=== PATIENT | male | born 1995 | race Caucasian/White ===

== ENCOUNTER 2016-09-30 17:39 | Emergency (ER) | payer OTHER ==
[2016-09-30 17:43] VITALS: BP 112/59; PULSE 76; TEMP 97.9
[2016-09-30] MEDS ORDERED: SODIUM CHLORIDE 1,000 ML IV STA (19:43)
--- NOTE | 2016-09-30 19:48 | PDOC ---
History of Present Illness - General Chief Complaint: Psychiatric Stated Complaint: PAIN Time Seen by Provider: 09/30/16 19:21 History Source: Patient, Parent(s) Exam Limitations: No Limitations - History of Present Illness Initial Comments: 21 year old male with " three days of no sleep with episodes of laughing and crying," denies HI , SI, auditory/ visual hallucination. patient reports smoking weed everyday currently not working and dropped out of college. denies other substance abuse or alcohol abuse. no pmhx. denies headache, NVD, abdominal pain, chest pain. parent at bedside also reports that he not eating or drinking. Timing/Duration: getting worse Past History - Past Medical History Allergies/Adverse Reactions: Allergies No Known Allergies Allergy (Verified 10/01/16 19:47) Home Medications: Ambulatory Orders Melatonin 10 mg PO HS #7 tablet 09/30/16 Psychosocial History: Yes: no pertinent history Surgical History: Yes: No Surgical History - Social History Smoking Status: Never smoked *Review of Systems - Review of Systems Able to Perform ROS?: Yes Psychiatric: Yes: Frequent Crying, Sleep Pattern Change, Emotional Problems, Change in Appetite *Physical Exam - Vital Signs Last Vital Signs Temp Pulse Resp BP Pulse Ox 97.9 F 76 19 112/59 99 09/30/16 17:41 09/30/16 17:41 09/30/16 17:41 09/30/16 17:41 09/30/16 17:41 - Physical Exam General Appearance: Yes: Appropriately Dressed, Other (no consistent eye contact ) Respiratory/Chest: positive: Lungs Clear, Normal Breath Sounds Cardiovascular: positive: Regular Rhythm, Regular Rate, S1, S2 Gastrointestinal/Abdominal: positive: Normal Bowel Sounds, Soft. negative: Tender Musculoskeletal: positive: Normal Inspection Extremity: positive: Normal Capillary Refill, Normal Inspection, Normal Range of Motion Integumentary: positive: Dry, Warm, Pale Neurologic: positive: Fully Oriented, Alert, Normal Response, Motor Strength 5/5 , Other (flat affect with laughing episodes during exam) Plan - Order(s) Order(s): Orders Medication Instructions Recorded NK [No Known Home Medication] 09/30/16 09/30/16 19:51 10/01/16 20:53 - Laboratory CBC & Chemistry Diagram: 09/30/16 20:18 09/30/16 20:18 - Consult/PCP Case Discussed with Personal Care Physician Not on Staff:: Patient to follow up in [facility] clinic tomorrow am. CASE DISCUSSED WITH CHEMICAL SUPERVISOR ketty. patient is medically cleared. Calls made to arrange follow-up care: Sherly Lozano (follow up ) Consult Reason/Comments: Reviewed patient status. currently medically cleared. no threat to self. - Additional Consults Consult/PCP: Sherly Lozano LOBSTER MAN (psychiatry) Reason/Comments: r *DC/Admit/Observation/Transfer Diagnosis at time of Disposition: Sleep pattern disturbance - Discharge Dispostion Disposition: HOME - Prescriptions Prescriptions: Melatonin 10 mg PO HS #7 tablet - Referrals Referrals: Arian Thomas MD [Primary Care Provider] - - Patient Instructions Printed Discharge Instructions: Creating a Healthy Sleep Routine, Sleep Medications Additional Instructions: Please follow up in the [facility] clinic tomorrow at [address] am. [address] [place] [address] Ketty LOBSTER MAN. return to the ER If symptoms worsen. continue melatonin 10 mg once at night time
--- NOTE | 2016-09-30 20:26 | PDOC ---
*Physical Exam - Vital Signs Last Vital Signs Temp Pulse Resp BP Pulse Ox 97.9 F 76 19 112/59 99 09/30/16 17:41 09/30/16 17:41 09/30/16 17:41 09/30/16 17:41 09/30/16 17:41 Medical Decision Making - Medical Decision Making 09/30/16 20:26 agree with care from TIFFANIE England *DC/Admit/Observation/Transfer Diagnosis at time of Disposition: Sleep pattern disturbance - Referrals Referrals: Arian Thomas MD [Primary Care Provider] - - Patient Instructions - Post Discharge Activity
[2016-09-30 20:36] LABS: BASOPHIL 0.2 % (0-2.0); EOSINOPHIL 0.1 % (0-4.5); MCH 28.4 pg (25.7-33.7); MCHC 34.3 g/dl (32.0-35.9); MEAN CELL VOLUME 82.7 fl (80-96); MEAN PLT VOLUME 8.6 fl (7.5-11.1); NEUTROPHILS 77.8 % (42.8-82.8); PLATELET COUNT 278 K/MM3 (134-434); RDW 13.4 % (11.9-15.9); WHITE BLOOD COUNT 7.6 K/mm3 (4.0-10.0)
[2016-09-30 20:44] LABS: URINE APPEARANCE CLEAR; URINE BILIRUBIN NEGATIVE (NEGATIVE); URINE COLOR STRAW; URINE GLUCOSE (UA) NEGATIVE (NEGATIVE); URINE KETONE TRACE (NEGATIVE); URINE LEUK ESTERASE NEGATIVE (NEGATIVE); URINE NITRITE NEGATIVE (NEGATIVE); URINE PROTEIN NEGATIVE (NEGATIVE); URINE UROBILINOGEN NEGATIVE E.U./dl (0.2-1.0)
[2016-09-30 20:46] LABS: INR 1.2 (0.82-1.09); PROTHROMBIN TIME (PATIENT) 13.2 SEC (9.98-11.88)
[2016-09-30 20:47] LABS: URINE BLOOD 1+ (NEGATIVE)
[2016-09-30 20:48] LABS: URINE RBC 4 /hpf (0-3); URINE WBC <1 /hpf (3-5)
[2016-09-30 21:18] LABS: URINE MARIJUANA THC POSITIVE ng/ml (CUTOFF=50)
[2016-09-30 21:23] LABS: ALCOHOL < 5.0 mg/dl (0-5)
[2016-09-30 21:24] LABS: ALBUMIN 4.8 g/dl (3.4-5.0); ANION GAP 10 (8-16); BILIRUBIN,TOTAL 1.2 mg/dL (0.2-1.0); CALCIUM 9.6 mg/dL (8.5-10.1); CO2 29 mmol/L (21-32); COCKROFT - GAULT 104.07; GLUCOSE,RANDOM 98 mg/dL (74-106); SGOT/AST 12 U/L (15-37); SGPT/ALT 22 U/L (12-78); TOT PROT 7.8 g/dl (6.4-8.2)
[2016-09-30 21:25] LABS: ALK PHOS 54 U/L (45-117)
[2016-09-30 21:41] LABS: SALICYLATE < 4.0 mg/dl (0.0-30.0)
[2016-09-30] MEDS ORDERED: MELATONIN 5 MG TABLETS PO ONE (21:56)
== END 2016-09-30 23:25 | disposition home or self-care (01) ==
LOC: JER 17:39
PROC: 3E0337Z Introduction of Electrolytic and Water Balance Substance into Peripheral Vein, Percutaneous Approach (ICD-10-PCS; principal; 2016-09-30)
DX: G47.59 Other parasomnia (principal); F51.8 Other sleep disorders not due to a substance or known physiological condition
CPT/HCPCS: 36415; 80053; 80307; 81003; 81015; 82140; 84443; 85025; 85610; 99284-25

== ENCOUNTER 2016-10-01 19:34 | Emergency (ER) | payer OTHER ==
[2016-10-01 19:51] VITALS: BP 137/71; PULSE 65; TEMP 98.7
--- NOTE | 2016-10-01 21:10 | PDOC ---
History of Present Illness <SergeyTiffanyGriselda - Last Filed: 10/01/16 21:35> - General History Source: Patient, Parent(s) Exam Limitations: No Limitations - History of Present Illness Initial Comments: Patient is a well-appearing 21-year-old male who presents for the second time in the last 24 hours for anxiety, intermittent palpitations, lack of appetite and insomnia. Patient has been under increased stress due possibility of drug testing wall on probation. Patient reports that he frequently smokes marijuana and tested positive for THC during his previous visits to the ER. Patient had been seen in this ER previously and was medically cleared for psychiatric evaluation. Patient was scheduled to be seen by Dr. Hogue of psychiatry but failed to follow up. Patient denies suicidal homicidal ideations. REVIEW OF SYSTEMS CONSTITUTIONAL: No fever, no chills, no fatigue EYES: No visual changes ENT: No ear pain, no sore throat CARDIOVASCULAR: No chest pain, no palpitations RESPIRATORY: No cough, no SOB GI: No abdominal pain, no nausea, no vomiting, no constipation, no diarrhea GENITOURINARY: No dysuria, no frequency, no hematuria MUSKULOSKELETAL: No backpain, no joint pain, no myalgias SKIN: No rash NEURO: No headache PSYCH: Anxiety, insomnia, anorexia; EXAMINATION CONSTITUTIONAL: Well-appearing; well-nourished; in no apparent distress HEAD: Normocephalic; atraumatic EYES: PERRL; EOM intact ENMT: External appears normal; normal oropharynx NECK: Supple; non-tender; no cervical lymphadenopathy CARD: Normal S1, S2; no murmurs, rubs, or gallops RESP: Normal chest excursion with respiration; breath sounds clear and equal bilaterally; no wheezes, rhonchi, or rales ABD: Soft, non-distended; non-tender; no palpable organomegaly, no palpable hernias EXT: Normal ROM in all four extremities; non-tender to palpation; distal pulses intact SKIN: Warm, dry, no rash NEURO: No focal neurological deficiencies. PSYCH: Appearance: Appropriate; speech: Normal; affect: Appropriate; has no flight of ideas or tangential thinking; <Agustin Bunch - Last Filed: 10/01/16 21:59> - General Chief Complaint: Psychiatric Stated Complaint: PSYCHIATRIC Time Seen by Provider: 10/01/16 21:08 Past History <Griselda Rincon - Last Filed: 10/01/16 21:35> - Past Medical History Surgical History: Yes: No Surgical History - Social History Smoking Status: Current some day smoker <Agustin Bunch - Last Filed: 10/01/16 21:59> - Past Medical History Allergies/Adverse Reactions: Allergies No Known Allergies Allergy (Verified 10/01/16 19:47) Home Medications: Ambulatory Orders Melatonin 10 mg PO HS #7 tablet 09/30/16 *Physical Exam - Vital Signs Last Vital Signs Temp Pulse Resp BP Pulse Ox 98.7 F 65 14 137/71 100 10/01/16 19:48 10/01/16 19:48 10/01/16 19:48 10/01/16 19:48 10/01/16 19:48 <Griselda Rincon - Last Filed: 10/01/16 21:35> - Vital Signs Last Vital Signs Temp Pulse Resp BP Pulse Ox 98.7 F 65 14 137/71 100 10/01/16 19:48 10/01/16 19:48 10/01/16 19:48 10/01/16 19:48 10/01/16 19:48 <Agustin Bunch - Last Filed: 10/01/16 21:59> Plan - Progress Note Progress Note: 10/01/16 21:58 Patient is well-appearing 21-year-old male who presents with signs and symptoms of intermittent anxiety. In the ER, patient is awake and alert, well-appearing, with normal vital signs. At this time, I do not believe acute intervention is indicated. Patient advised to follow-up with psychiatry as scheduled previously. Patient also advised to discontinue abusing illegal drugs. Patient expressed understanding. <Agustin Bunch - Last Filed: 10/01/16 21:59> *DC/Admit/Observation/Transfer - Attestations Scribe Attestion: 10/01/16 21:35 Documentation prepared by Griselda Rincon, acting as medical file clerk for Agustin Bunch MD. <Griselda Rincon - Last Filed: 10/01/16 21:35> <Agustin Bunch - Last Filed: 10/01/16 21:59> Diagnosis at time of Disposition: Anxiety - Discharge Dispostion Disposition: HOME Condition at time of disposition: Stable - Referrals Referrals: Arian Thomas MD [Primary Care Provider] - Sherly Lozano NP [Nurse Practitioner] - - Patient Instructions Printed Discharge Instructions: DI for Anxiety -- Adult Additional Instructions: Stop smoking marijuana. Follow-up with Dr. Hogue of psychiatry as advised.
== END 2016-10-01 21:35 | disposition home or self-care (01) ==
LOC: JER 19:34
DX: F41.8 Other specified anxiety disorders (principal); Z73.3 Stress, not elsewhere classified
CPT/HCPCS: 99281-25

== ENCOUNTER 2018-11-16 22:57 | Emergency (ER) | payer OTHER | END 2018-11-17 01:00 | disposition home or self-care (01) | LOC: JER 11-17 01:00 ==

== ENCOUNTER 2018-11-20 04:24 | Emergency (ER) | payer OTHER ==
--- NOTE | 2018-11-20 04:34 | PDOC ---
Attending Attestation - Resident Resident Name: Yayo Hernandez - ED Attending Attestation I have performed the following: I have examined & evaluated the patient, The case was reviewed & discussed with the resident, I agree w/resident's findings & plan, Exceptions are as noted - HPI HPI: 11/20/18 05:50 Mr Woodall is a 23 yo M presenting with a headache pt was recently seen in the ER for cough, dx bronchitis d/c on Azithromycin Pt has not taken this medication He began having a headache this afternoon (+) fever (unable to tell me how high) (+) congestion (+) cough No head trauma No prior episodes like this - Physicial Exam PE: 11/20/18 05:54 GENERAL: The patient is in no acute distress, pt is frustrated and upset with physician examiners ENT: Ears normal, nares patent, oropharynx clear without exudates. Moist mucous membranes. Maxillary tenderness to palpation R>L NECK: Normal range of motion, supple, no nuchal rigidity LUNGS: rhoncherous Breath sounds HEART:Regular rate and rhythm, normal S1 and S2 without murmur, rub or gallop. ABDOMEN: Soft, nontender, normoactive bowel sounds. EXTREMITIES: Normal range of motion, no edema. NEUROLOGICAL: Cranial nerves II through XII grossly intact. Normal speech. No focal neurological deficits. SKIN: Warm, Dry, normal turgor, no rashes or lesions noted. 11/20/18 06:19 - Medical Decision Making 11/20/18 05:56 This patient walked out of the ER due to being up upset about something Pt mother and father got him to come back to the ER He was given po pain medications with little relief Will place I V Will do CXR (breath sounds rhoncerous) Will do CT head (pt with new headache that is intractable) Will re Assess 11/20/18 06:11 Laboratory Tests 11/20/18 05:39 WBC 8.6 Hgb 13.7 Hct 39.3 Plt Count 248 11/20/18 06:19 ? sinusitis CT head pending Will plan to discharge to home on Augmentin, Sudafed 11/20/18 06:53 CT- EXAM: CT HEAD WITHOUT CONTRAST No acute brain parenchymal abnormality. No hemorrhage, mass or acute territorial infarct. Chronic fracture left lamina papyracea. Mucoperiosteal thickening paranasal sinuses. Visualized mastoid air cells clear. One or more of the following dose reduction techniques were used: automated exposure control, adjustment of the mA and/or kV according to patient size, use of iterative reconstructive technique. Pt demonstrates maxillary tenderness and congestion Likely headache is secondary to sinusitis Will give Augmentin, Sudafed, Motrin/Tylenol, Mucinex Follow up with PMD
--- NOTE | 2018-11-20 04:42 | PDOC ---
History of Present Illness - General Stated Complaint: SEVERE HEADACHE Time Seen by Provider: 11/20/18 04:31 History Source: Patient - History of Present Illness Initial Comments: 11/20/18 04:48 23 yo M smoker with no pmhx presents with one day history of headache. He describes frontal headache that is throbbing in nature that started this afternoon and has not gone away. Denies any alleviating or aggravating factors. He denies photophobia or nausea. H was seen here 2 days prior and diagnosed with acute bronchitis and prescribed Zpack and albuterol inh. He failed to pick them up and now presents with headache. Endorsed some shortness of breath and continued productive cough. Denies CP, palpitations, abdominal pain, nausea or vomiting. Timing/Duration: reports: 4-6 hours Severity: Yes: moderate Past History - Travel Traveled outside of the country in the last 30 days: No Close contact w/someone who was outside of country & ill: No - Past Medical History Allergies/Adverse Reactions: Allergies Allergy/AdvReac Type Severity Reaction Status Date / Time No Known Allergies Allergy Verified 11/16/18 23:11 Home Medications: Ambulatory Orders Melatonin 10 mg PO HS #7 tablet 09/30/16 Albuterol Sulfate Inhaler - [Ventolin HFA Inhaler -] 2 inh PO Q4H PRN #1 inh Azithromycin [Zithromax 250mg Tablets -] 250 mg PO UTDICT #6 tab 11/17/18 Amoxicillin/Potassium Clav [Augmentin 875-125 Tablet] 1 each PO BID #14 tablet 11/20/18 Guaifenesin [Mucinex -] 600 mg PO BID #14 tablet.er 11/20/18 Pseudoephedrine HCl [Sudafed] 60 mg PO Q6H PRN #30 tablet 11/20/18 COPD: No - Suicide/Smoking/Psychosocial Hx Smoking History: Current every day smoker Have you smoked in the past 12 months: Yes Number of Cigarettes Smoked Daily: 10 Hx Alcohol Use: No Drug/Substance Use Hx: Yes (marjuana) Substance Use Type: Marijuana Lives with/in: parents Review of Systems - Review of Systems Able to Perform ROS?: Yes Is the patient limited Nepali proficient: No Constitutional: Yes: Loss of Appetite. No: Chills, Diaphoresis, Fever HEENTM: No: Recent change in vision Respiratory: Yes: Cough, Shortness of Breath Cardiac (ROS): No: Chest Pain, Edema, Chest Tightness All Other Systems: Reviewed and Negative *Physical Exam - Physical Exam General Appearance: Yes: Appropriately Dressed HEENT: positive: YODIT Neck: positive: Trachea midline, Supple Respiratory/Chest: positive: Rhonchi. negative: Chest Tender, Respiratory Distress, Accessory Muscle Use, Wheezing Cardiovascular: positive: S1, S2, Tachycardia. negative: Edema, JVD, Murmur Gastrointestinal/Abdominal: positive: Flat, Soft. negative: Tender Musculoskeletal: negative: CVA Tenderness Integumentary: positive: Normal Color, Dry, Warm Neurologic: positive: shop estimator II-XII NML intact, Fully Oriented, Alert ED Treatment Course - LABORATORY CBC & Chemistry Diagram: 11/20/18 05:39 11/20/18 05:39 Medical Decision Making - Medical Decision Making 11/20/18 04:55 23 yo M smoker with no pmhx presents with one day history of headache. Most likely secondary to acute URI and coughing. Will give duonebs, Ibuprofen and reglan. Ordered CXR to r/o PNA. 11/20/18 05:36 * Headache persists- will obtain head CT. * Will order basic labs CBC, CMP and given 1L NS. 11/20/18 06:52 * Labs all WNL * CT shows sinusitis and CXR show no acute pathology. * Will discharge home with Abx and sudafed. *DC/Admit/Observation/Transfer Diagnosis at time of Disposition: Acute frontal sinusitis Qualifiers: Recurrence: not specified as recurrent Qualified Code(s): J01.10 - Acute frontal sinusitis, unspecified - Discharge Dispostion Disposition: HOME Condition at time of disposition: Stable Decision to Admit order: No - Prescriptions Prescriptions: Amoxicillin/Potassium Clav [Augmentin 875-125 Tablet] 1 each PO BID #14 tablet Guaifenesin [Mucinex -] 600 mg PO BID #14 tablet.er Pseudoephedrine HCl [Sudafed] 60 mg PO Q6H PRN #30 tablet PRN Reason: congestion - Referrals - Patient Instructions Printed Discharge Instructions: DI for Sinusitis Additional Instructions: Medication has been sent to your pharmacy. increase activity as tolerated. Resume a regular diet. If symptoms worsen or your develop fever or chills return to ER immediately. - Post Discharge Activity
[2018-11-20] MEDS ORDERED: IBUPROFEN 600 MG TABLET (FP) PO ONE ×2 (04:46→05:02)
[2018-11-20] MEDS ORDERED: METOCLOPRAMIDE HCL 10 MG TABLET (FP) PO ONE ×2 (04:47→05:03)
[2018-11-20] MEDS ORDERED: ALBUTEROL SO4 2.5/IPRATROPIUM 0.5 INH SOL 3 ML VIAL.NEB. NEB ONE ×2 (04:48→05:02)
[2018-11-20 04:56] VITALS: BMI 21.4
[2018-11-20] MEDS ORDERED: SODIUM CHLORIDE 1,000 ML IV STA (05:31)
[2018-11-20 05:51] LABS: BASO % 0.4 % (0-2.0); EOS % 0.6 % (0-4.5); HEMATOCRIT 39.3 % (35.4-49); HEMOGLOBIN 13.7 GM/dL (11.7-16.9); LYMPH % 9.9 % (8-40); MCH 28.4 pg (25.7-33.7); MCHC 34.8 g/dl (32.0-35.9); MEAN CELL VOLUME 81.6 fl (80-96); MEAN PLT VOLUME 7.7 fl (7.5-11.1); MONO % 7.3 % (3.8-10.2); NEUT % 81.8 % (42.8-82.8); PLATELET COUNT 248 K/MM3 (134-434); RBC 4.82 M/mm3 (4.00-5.60); RDW 13.4 % (11.9-15.9); WHITE BLOOD COUNT 8.6 K/mm3 (4.0-10.0)
[2018-11-20] MEDS ORDERED: ACETAMINOPHEN 1000 MG/100 ML VIAL (NON FORMULARY) IVPB ONE (06:00)
[2018-11-20] MEDS ORDERED: ACETAMINOPHEN INJECTION 100 ML IVPB ONE (06:04)
[2018-11-20 06:22] LABS: ALBUMIN 4.3 g/dl (3.4-5.0); BILIRUBIN,TOTAL 0.6 mg/dL (0.2-1); CALCIUM 9.2 mg/dL (8.5-10.1); TOT PROT 7.1 g/dl (6.4-8.2)
[2018-11-20 07:01] VITALS: BP 124/68; PULSE 81; TEMP 98.1
== END 2018-11-20 07:10 | disposition home or self-care (01) ==
LOC: JER 04:24
PROC: 3E0337Z Introduction of Electrolytic and Water Balance Substance into Peripheral Vein, Percutaneous Approach (ICD-10-PCS; principal; 2018-11-20)
PROC: 3E033NZ Introduction of Analgesics, Hypnotics, Sedatives into Peripheral Vein, Percutaneous Approach (ICD-10-PCS; 2018-11-20)
DX: J01.10 Acute frontal sinusitis, unspecified (principal); F17.210 Nicotine dependence, cigarettes, uncomplicated
CPT/HCPCS: 36415; 70450-TC; 71046-TC-FY; 80053; 85025; 96361; 96374; 99282-25; J0131; J7030

== ENCOUNTER 2019-03-07 01:11 | Emergency (ER) | payer OTHER ==
[2019-03-07 02:02] VITALS: BP 117/61; PULSE 79; TEMP 97.8; BMI 20.7
== END 2019-03-07 03:00 | disposition left against medical advice (07) ==
LOC: JER 01:11
DX: Z53.21 Procedure and treatment not carried out due to patient leaving prior to being seen by health care provider (principal)
CPT/HCPCS: 99281-25

== ENCOUNTER 2020-12-14 22:12 | Emergency (ER) | payer OTHER ==
[2020-12-14 22:18] VITALS: TEMP 98.3; BMI 21.5
[2020-12-14 23:27] VITALS: BP 124/66; PULSE 95
== END 2020-12-14 23:27 | disposition home or self-care (01) ==
LOC: JER 22:12
DX: M25.572 Pain in left ankle and joints of left foot (principal)
CPT/HCPCS: 73610-TC-LT-FY; 73630-TC-LT; 99284-25